=== PATIENT | male | born 1995 | race Caucasian/White ===

== ENCOUNTER → 2016-04-27 | Outpatient (CLI) | payer OTHER ==
[2016-04-27 15:04] LABS: ESTIMATED AVERAGE GLUCOSE 163 mg/dl; HA1C FLAG Normal (Normal)
[2016-04-27 15:15] LABS: ALKALINE PHOSPHATASE 62 U/L (45-117); ALT/SGPT 25 U/L (12-78); AST/SGOT 17 U/L (15-37); BLOOD UREA NITROGEN 12 mg/dl (7-18); BUN/CREATININE RATIO 12.4 (10-20); CALCIUM 8.9 mg/dl (8.5-10.1); CARBON DIOXIDE 30 mmol/L (21-32); CHLORIDE 105 mmol/L (98-107); CHOLESTEROL 141 mg/dl (0-200); CREATININE 0.96 mg/dl (0.60-1.40); GLUCOSE 49 mg/dl (70-99); POTASSIUM 3.8 mmol/L (3.5-5.1); SODIUM 142 mmol/L (136-145); TRIGLYCERIDES 60 mg/dl (0-150); VERY LOW DENSITY LIPOPROT CALC 12 mg/dl
[2016-04-27 15:22] LABS: ALB/GLOB RATIO 1.3 (0.9-2); CHOLESTEROL/HDL RATIO 2.6; HDL CHOLESTEROL 54 mg/dl; LDL CHOLESTEROL CALCULATED 75 mg/dl
[2016-04-27 15:41] LABS: RATIO 3.9 mcg/mg (0-30.0)
== END | disposition home or self-care (01) ==
LOC: C.LAB1850 13:20
PROVIDERS: ATTEND Internal Medicine Endocrinology, Diabetes & Metabolism
DX: E10.9 Type 1 diabetes mellitus without complications (principal)